=== PATIENT | male | born 1940 | race Two or more races ===

== ENCOUNTER 2023-09-01 09:14 | Outpatient (AMB) | payer OTHER, SELFPAY ==
--- NOTE | 2023-09-01 09:46 | MHC.OFFVIS ---
Vital Signs 09/01/23 10:01 Height 5 ft 5 in Weight 224 lb 8 oz BMI 37.4 BP 130/72 Blood Pressure Location Rt brachial Position Sitting Pulse 76 Pulse Source Pulse Oximeter Pulse Oximetry (%) 97 Oxygen Delivery Method Room Air Intake Visit Reasons: ENP-Ongoing Memory loss - LVM w/add Intake Note: Patient presents for ongoing memory loss. Feeling loss and very confuse. Feeling depressed. Club Room Attendant Required: Yes Club Room Attendant Name: Aliyah Ball Allergies lisinopril Allergy (Severe, Verified 09/01/23 09:54) Swelling Medication List - Last Reconciled 09/01/23 by Tiara Mcclellan MD amlodipine 2.5 mg PO DAILY aspirin (Adult Aspirin Regimen) 81 mg PO DAILY finasteride 5 mg PO DAILY metformin 1,000 mg PO BID metoprolol succinate ER 25 mg PO DAILY simvastatin 10 mg PO DAILY HPI Comments Details: 82y/o Right Handed [place] speaking male comes for evaluation of memory issues. A certified certified medical coder Aliyah Ball helped with this appointment.he is accompanied by his daughter who helps with history His family noticed some changes in his personality, cognition for past 6 months and is progressively worsening. He is quieter , has word finding difficulties, confused of where he is , forgets conversations, short term memory issues ,confused with medications, repeats himself often etc. He needs help with dressing showering due to arthritis .No sundowning. He has nocturia, has frequent arousals, has trouble sleeping, confusional arousals etc. He has depression not on any treatment. He lost 2 of his sisters and a grand son last year and has been depressed since then No h/o head injury [facility] Medical History Insomnia Hypersomnia Cognitive change Incisional hernia Neuropathy Anemia Arthritis Diabetes BPH (benign prostatic hyperplasia) PAD (peripheral artery disease) CAD (coronary artery disease) HTN (hypertension) Hyperlipidemia Surgical History History of cataract removal with insertion of prosthetic lens Total knee replacement status History of shoulder surgery History of hernia repair History of cholecystectomy Family History Father Prostate cancer Mother Vaginal cancer Sister Cancer Daughter Cancer Social History Household Members: Spouse Housing: Apartment Alcohol intake: former Patient Tobacco Use Status: Former Tobacco user Tobacco use type: Cigarette Physical Exam Vital Signs: Last Vital Signs Pulse 76 09/01/23 10:01 BP 130/72 09/01/23 10:01 Pulse Ox 97 09/01/23 10:01 Oxygen Delivery Method Room Air 09/01/23 10:01 BMI result Body Mass Index 37.4 Const General: cooperative, healthy appearing and comfortable Nutritional Appearance: obese Orientation/consciousness: patient oriented x3 Eyes Pupils: Equal, round and reactive pupils present Neuro General: patient oriented x3, tone normal, moves all extremities and no focal motor deficits Cranial nerves: Yes Equal, round and reactive pupils present, Yes Bilaterally intact EOM present, Yes Nystagmus not present, Yes Normal facial strength present, Yes Midline tongue present, Yes Symmetric palate elevation present and Yes Ability to bilaterally elevate shoulders present Cognition (Neuro): normal cognition Gait exam (Neuro): Antalgic gait present and Assistive device used Motor exam (neuro): 5/5 motor strength present throughout and Normal motor muscle tone present throughout Deep tendon reflexes (DTR's): Right triceps reflex intensity grade: 1+, Left triceps reflex intensity grade: 1+, Rt Biceps (C5, C6): 1+, Left biceps reflex intensity grade: 1+, Right brachioradialis reflex intensity grade: 1+, Left brachioradialis reflex intensity grade: 1+, Right patellar reflex intensity grade: 1+ and Left patellar reflex intensity grade: 1+ Coordination: [id number] test normal Orientation What is the (year) (season) (date) (day) (month)?: year, season, date, day and month Where are we (state) (county) (town or city) (hospital) (floor)?: state, county, town or city, hospital/clinic and floor Registration Name of 3 unrelated objects clearly and slowly, then ask patient to repeat all 3 of them. (1st repeat determines score. Make sure they can repeat all three): object 1, object 2 and object 3 Attention & Calculation (CHOOSE ONE) Spell WORLD backwards (DLROW): 5 letters Recall Ask patient to repeat the 3 items from question #3.: object 1 and object 2 Language Show patient a wristwatch & ask what it is. Repeat for pencil.: watch and pencil Ask the patient to repeat the phrase 'No ifs, ands, or buts' after you.: correct Print the sentence 'CLOSE YOUR EYES' on a piece. If patient actually closes eyes then score.: followed written direction Give patient a blank piece of paper & ask to write a sentence. Score if it contains a noun & verb.: sentence contains subject and verb Ask patient to copy figure of intersecting pentagons exactly. Score if all 10 angles & 2 intersects are included.: all 10 angles present & 2 are intersected Score Score: 26 Assessment & Plan Assessment & Plan (1) Cognitive change: Comment: ? relate dto poorly controlled mood ? sleep disorder Code(s): R41.89 - Other symptoms and signs involving cognitive functions and awareness Category: Medical (2) Hypersomnia: Code(s): G47.10 - Hypersomnia, unspecified Category: Medical (3) Insomnia: Code(s): G47.00 - Insomnia, unspecified Category: Medical Plan I will trial him on lexapro 5mg qd for mood MRI brain labs- B12 TSH ESR Home sleep test to r/o sleep apnea Orders: Orders RT home sleep study Today G47.00 - Insomnia, unspecified, G47.10 - Hypersomnia, unspecified, R41.89 - Other symptoms and signs involving cognitive functions and awareness MR head/brain wo con Today G47.00 - Insomnia, unspecified, G47.10 - Hypersomnia, unspecified, R41.89 - Other symptoms and signs involving cognitive functions and awareness TSH reflex Free T4 Today R41.89 - Other symptoms and signs involving cognitive functions and awareness Erythrocyte Sedimentation Rate Today R41.89 - Other symptoms and signs involving cognitive functions and awareness Vitamin D 25-OH (D2 and D3) Today R41.89 - Other symptoms and signs involving cognitive functions and awareness Vitamin B12 and Folate Today R41.89 - Other symptoms and signs involving cognitive functions and awareness Medications: New escitalopram oxalate (Lexapro) 5 mg PO DAILY 30 tabs 6RF Coding Level of Care Code New Pt Level 4 (03938) Diagnoses Cognitive change R41.89 Hypersomnia G47.10 Insomnia G47.00
[2023-09-01 10:01] VITALS: BP 130/72; PULSE 76; O2SAT 97; BMI 37.4
== END 2023-09-01 10:40 | disposition home or self-care (01) ==
PROVIDERS: PCP Internal Medicine; Visit Provider Psychiatry & Neurology Neurology
DX: R41.89 Other symptoms and signs involving cognitive functions and awareness (principal); G47.10 Hypersomnia, unspecified; G47.00 Insomnia, unspecified
CPT/HCPCS: 99204

== ENCOUNTER → 2023-09-01 09:14 | Outpatient (BNVA) | payer OTHER, SELFPAY | PROVIDERS: PCP Internal Medicine; Visit Provider Psychiatry & Neurology Neurology | DX: R41.89 Other symptoms and signs involving cognitive functions and awareness (principal); G47.10 Hypersomnia, unspecified; G47.00 Insomnia, unspecified | CPT/HCPCS: 99202 ==

== ENCOUNTER 2023-09-01 10:57 | Outpatient (REF) | payer OTHER, SELFPAY ==
[2023-09-01 18:46] LABS: TSH reflex Free T4 0.71 uIU/mL (0.32-4.0)
[2023-09-01 18:55] LABS: Erythrocyte Sedimentation Rate 19 MM/HR (0-15)
[2023-09-01 19:00] LABS: Folate 7.7 ng/mL (> or = 4.0); Vitamin B12 824 pg/mL (200-900)
[2023-09-05 16:49] LABS: Vitamin D 25-OH, D2 <4 ng/mL; Vitamin D 25-OH, D3 24 ng/mL; Vitamin D 25-OH, Total 24 ng/mL (30-100)
== END 2023-09-01 10:58 | disposition home or self-care (01) ==
LOC: HO.HKASLDS 10:57
PROVIDERS: Visit Provider Psychiatry & Neurology Neurology
DX: R41.89 Other symptoms and signs involving cognitive functions and awareness (principal)
CPT/HCPCS: 36415; 82306; 82607; 82746; 84443; 85652

== ENCOUNTER → 2023-11-10 09:31 | Outpatient (REF) | payer MEDICARE, SELFPAY | LOC: HO.SL 09:31 | PROVIDERS: PCP Internal Medicine; Visit Provider Psychiatry & Neurology Neurology | DX: G47.00 Insomnia, unspecified (principal); G47.10 Hypersomnia, unspecified; R41.89 Other symptoms and signs involving cognitive functions and awareness | CPT/HCPCS: 95806 ==

== ENCOUNTER → 2023-11-10 09:55 | Outpatient (BNV) | payer MEDICARE, SELFPAY | PROVIDERS: PCP Internal Medicine; Visit Provider Internal Medicine | DX: R06.83 Snoring (principal); G47.10 Hypersomnia, unspecified | CPT/HCPCS: 95806 ==

== ENCOUNTER → 2023-11-17 08:20 | Outpatient (BNV) | payer MEDICARE, SELFPAY | PROVIDERS: PCP Internal Medicine; Visit Provider Radiology Diagnostic Radiology | DX: R41.89 Other symptoms and signs involving cognitive functions and awareness (principal) | CPT/HCPCS: 70551 ==

== ENCOUNTER 2023-11-17 08:45 | Outpatient (REF) | payer MEDICARE, SELFPAY ==
--- NOTE | ~2023-11-17 | MR_ITS ---
EXAMINATION: MR BRAIN WITHOUT CONTRAST CLINICAL INFORMATION: Cognitive issues; confusion, forgetfulness, poor sleeping. 83-year-old male. COMPARISON: No priors. TECHNIQUE: MRI of the brain was obtained using routine sequences without contrast. Exam was performed on a Siemens 1.5 Emily magnet without gadolinium. FINDINGS: There is no diffusion restriction. There is no intracranial hemorrhage, acute infarction, mass effect, or edema. Sulci and cisterns are diffusely somewhat prominent, in keeping with age-related involutional changes. Lateral and third ventricles are dilated somewhat out of proportion to sulcal prominence, a finding which may represent central volume loss, or possibly communicating hydrocephalus. Aqueductal stenosis is also a possibility given lack of old studies to compare with. No abnormal hemosiderin deposition is identified. There is mineralization of the basal ganglial nuclei as well as the dentate nuclei, age-related. There are extensive punctate and confluent foci of white matter T2 hyperintensity in the periventricular, subcortical, and hemispheric deep white matter, consistent with moderate to advanced small vessel ischemic changes. 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 Midline structures appear normally formed. The pituitary gland appears normal. Posterior fossa structures appear normal. Cerebellar tonsils are appropriately located. Major flow voids are preserved within the skull base. The globes and orbital contents demonstrate no abnormalities. There are bilateral lens replacements. There is complete opacification of the right frontal sinus with inspissated central secretions, and partial opacification of the left frontal sinus, bilateral anterior ethmoid sinuses, and right posterior ethmoid sinus. There is moderate circumferential polypoid mucosal thickening throughout both maxillary sinuses, and the right sphenoid sinus. Findings are in keeping with chronic beltran sinus disease. Aerated delicia bullosa in the left middle turbinate. Nasal septum is essentially midline without spur. There is trace fluid in the right mastoid tip. The left mastoid and bilateral middle ear cavities are normally aerated. Extracranial soft tissues demonstrate no abnormalities. No suspicious bone marrow changes are evident. Atlantoaxial joint demonstrates moderate to advanced degenerative arthrosis, with remodeling of the dens. MR/MR head/brain wo con IMPRESSION: 1. No evidence of intracranial hemorrhage, acute infarction, mass effect, or edema. 2. Age-related global evolutional changes. Ventricles dilated somewhat out of proportion to sulcal prominence, a finding which may represent more advanced central atrophy, or a component of communicating hydrocephalus. 3. Moderate to extensive small vessel ischemic changes in the supratentorial region. Subtle foci also noted in the mid and posterior pancho. 4. There are several old tiny lacunar type infarcts in the bilateral basal ganglia and left thalamus. 5. 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 Electronically signed by: Bunny Mcneal MD 12/03/2023 03:14 PM EDT
== END 2023-11-17 08:46 | disposition home or self-care (01) ==
LOC: HO.MRI 08:45
PROVIDERS: PCP Internal Medicine; Visit Provider Psychiatry & Neurology Neurology
DX: R41.89 Other symptoms and signs involving cognitive functions and awareness (principal); G47.10 Hypersomnia, unspecified; G47.00 Insomnia, unspecified
CPT/HCPCS: 70551

== ENCOUNTER → 2024-03-23 20:30 | Outpatient (REF) | payer MEDICARE, SELFPAY | LOC: HO.SL 20:30 | PROVIDERS: PCP Internal Medicine; Visit Provider Psychiatry & Neurology Neurology | DX: G47.10 Hypersomnia, unspecified (principal); R41.89 Other symptoms and signs involving cognitive functions and awareness; G47.00 Insomnia, unspecified | CPT/HCPCS: 95810 ==

== ENCOUNTER → 2024-03-23 22:53 | Outpatient (BNV) | payer MEDICARE, SELFPAY | PROVIDERS: PCP Internal Medicine; Visit Provider Psychiatry & Neurology Neurology | DX: G47.33 Obstructive sleep apnea (adult) (pediatric) (principal) | CPT/HCPCS: 95810 ==

== ENCOUNTER 2024-06-05 11:08 | Outpatient (AMB) | payer MEDICARE, SELFPAY ==
--- NOTE | 2024-06-05 11:27 | A.OFFVIS_ITS ---
Vital Signs 06/05/24 11:28 Height 5 ft 5 in Pulse 73 Pulse Source Pulse Oximeter Pulse Oximetry (%) 97 Oxygen Delivery Method Room Air Intake Visit Reasons: Memory loss Intake Note: Patient presents for follow up MRI done 12/06 and sleep study done 03/23/24 Radio Commentator Required: Yes Radio Commentator Services: Radio Commentator Offered & Declined Radio Commentator Name: Daughter Melissa Suarez lisinopril Allergy (Severe, Verified 06/05/24 11:32) Swelling Medication List - Last Reconciled 06/05/24 by Tiara Mcclellan MD amlodipine 2.5 mg PO DAILY aspirin (Adult Aspirin Regimen) 81 mg PO DAILY cholecalciferol (vitamin D3) 25 mcg PO DAILY 30 days escitalopram oxalate 10 mg PO DAILY finasteride 5 mg PO DAILY gabapentin 100 mg PO DAILY metformin 1,000 mg PO BID metoprolol succinate ER 25 mg PO DAILY simvastatin 10 mg PO DAILY tamsulosin mg PO DAILY HPI Comments Details: 83y/o Right Handed [place] Citizen speaking male comes for f/u of memory issues. He took lexapro for 1 month but did not refill after. sleep study was c/w sleep apnea -still waiting for CPAP He had back surgery for cauda equina syndrome last month History from initial visit- His family noticed some changes in his personality, cognition for past 6 months and is progressively worsening. He is quieter , has word finding difficulties, confused of where he is , forgets conversations, short term memory issues ,confused with medications, repeats himself often etc. He needs help with dressing showering due to arthritis .No sundowning. He has nocturia, has frequent arousals, has trouble sleeping, confusional arousals etc. He has depression not on any treatment. He lost 2 of his sisters and a grand son last year and has been depressed since then No h/o head injury [facility] Medical History Obstructive sleep apnea Insomnia Hypersomnia Cognitive change Incisional hernia Neuropathy Anemia Arthritis Diabetes BPH (benign prostatic hyperplasia) PAD (peripheral artery disease) CAD (coronary artery disease) HTN (hypertension) Hyperlipidemia Surgical History History of cataract removal with insertion of prosthetic lens Total knee replacement status History of shoulder surgery History of hernia repair History of cholecystectomy Family History Father Prostate cancer Mother Vaginal cancer Sister Cancer Daughter Cancer Social History Household Members: Spouse Housing: Apartment Alcohol intake: former Patient Tobacco Use Status: Former Tobacco user Tobacco use type: Cigarette Physical Exam Vital Signs: Last Vital Signs Pulse 73 06/05/24 11:28 Pulse Ox 97 06/05/24 11:28 Oxygen Delivery Method Room Air 06/05/24 11:28 Const General: cooperative, healthy appearing and comfortable Nutritional Appearance: obese Orientation/consciousness: patient oriented x3 Eyes Pupils: Equal, round and reactive pupils present Neuro General: patient oriented x3, tone normal, moves all extremities and no focal motor deficits Cranial nerves: Yes Equal, round and reactive pupils present, Yes Bilaterally intact EOM present, Yes Nystagmus not present, Yes Normal facial strength present, Yes Midline tongue present, Yes Symmetric palate elevation present and Yes Ability to bilaterally elevate shoulders present Cognition (Neuro): normal cognition Gait exam (Neuro): Antalgic gait present and Assistive device used Motor exam (neuro): 5/5 motor strength present throughout and Normal motor muscle tone present throughout Coordination: [id number] test normal Assessment & Plan Assessment & Plan (1) Cognitive change: Comment: ? relate dto poorly controlled mood ? sleep disorder Code(s): R41.89 - Other symptoms and signs involving cognitive functions and awareness Category: Medical (2) Obstructive sleep apnea: Code(s): G47.33 - Obstructive sleep apnea (adult) (pediatric) Category: Medical Plan Restart lexapro 10mg qd for mood DHRUV - call [facility] about the status of CPAP Medications: Changed From escitalopram oxalate (Lexapro) 5 mg PO DAILY 30 tabs 6RF To escitalopram oxalate 10 mg PO DAILY 30 tabs 6RF Coding Level of Care Code Est Pt Level 4 (00751) Complex EM visit Add On G2211 Diagnoses Cognitive change R41.89 Obstructive sleep apnea G47.33
[2024-06-05 11:28] VITALS: PULSE 73; O2SAT 97
== END 2024-06-05 12:00 | disposition home or self-care (01) ==
LOC: HO.HSMS 11:09
PROVIDERS: PCP Internal Medicine; Visit Provider Psychiatry & Neurology Neurology
DX: R41.89 Other symptoms and signs involving cognitive functions and awareness (principal); G47.33 Obstructive sleep apnea (adult) (pediatric)
CPT/HCPCS: 99214; G2211

== ENCOUNTER → 2024-06-05 11:08 | Outpatient (BNVA) | payer MEDICARE, SELFPAY | PROVIDERS: PCP Internal Medicine; Visit Provider Psychiatry & Neurology Neurology | DX: G47.33 Obstructive sleep apnea (adult) (pediatric) (principal); R41.89 Other symptoms and signs involving cognitive functions and awareness | CPT/HCPCS: 99212 ==

== ENCOUNTER 2024-09-08 10:14 | Outpatient (AMB) | payer MEDICARE, SELFPAY ==
--- NOTE | 2024-09-08 10:25 | A.OFFVIS_ITS ---
Vital Signs 09/08/24 10:27 Height 5 ft 5 in BP 128/72 Blood Pressure Location Rt brachial Position Sitting Pulse 63 Pulse Source Pulse Oximeter Pulse Oximetry (%) 98 Oxygen Delivery Method Room Air Intake Visit Reasons: 3 mnts f/u Intake Note: Patient presents follow up cognitive/DHRUV medication. Still not set up with CPAP Savings Counselor Required: Yes Savings Counselor Services: Savings Counselor Present Savings Counselor Name: aliyah ball Information Interpreted: non-clinical & clinical Allergies lisinopril Allergy (Severe, Verified 09/08/24 10:27) Swelling HPI Comments Details: 83y/o right handed Citizen Of [place] speaking male comes for f/u of memory issues. Amlodipine discontinued due to SE per his it security consulting director. 05/2024 HST c/w sleep apnea - AHI is 16 and frequent limb movements and moderate snoring. He tears off his mask in his sleep, and is unaware of this behavior per daughter, but trying to improve compliance. He had back surgery for cauda equina syndrome last month July 2024, he has constipation and diarrhea- when he is very constipated can go 5 days without a BM. Incontinence - wears diapers at night and through the day as needed. He needs help with dressing showering due to arthritis , ADL . Mood is okay, no talking, no sun-downing, lexapro 10mg po may 2024 increased to 15mg po daily at am, used to be very social, now engages with his dog donna only. He has nocturia, has frequent arousals, has trouble sleeping, confusional arousals etc. He can sleep all night with medication. Denies falls. Diet is good eats ice cream and junk food at night time. History from initial visit- His family noticed some changes in his personality, cognition for past 6 months and is progressively worsening. He is quieter , has word finding difficulties, confused of where he is , forgets conversations, short term memory issues ,confused with medications, following directions, orientation, repeats himself often etc, depression. He lost 2 of his sisters and a grand son passed, last year and has been depressed since then, place orientation, recall, langauge. MMSE next time. [facility] Medical History Obstructive sleep apnea Insomnia Hypersomnia Cognitive change Incisional hernia Neuropathy Anemia Arthritis Diabetes BPH (benign prostatic hyperplasia) PAD (peripheral artery disease) CAD (coronary artery disease) HTN (hypertension) Hyperlipidemia Surgical History History of cataract removal with insertion of prosthetic lens Total knee replacement status History of shoulder surgery History of hernia repair History of cholecystectomy Family History Father Prostate cancer Mother Vaginal cancer Sister Cancer Daughter Cancer Social History Household Members: Spouse Housing: Apartment Alcohol intake: former Patient Tobacco Use Status: Former Tobacco user Tobacco use type: Cigarette Physical Exam Vital Signs: Last Vital Signs Pulse 63 09/08/24 10:27 BP 128/72 09/08/24 10:27 Pulse Ox 98 09/08/24 10:27 Oxygen Delivery Method Room Air 09/08/24 10:27 Const General: cooperative, healthy appearing and comfortable Nutritional Appearance: obese Orientation/consciousness: patient oriented x3 Eyes Pupils: Equal, round and reactive pupils present Neuro General: patient oriented x3, tone normal, moves all extremities and no focal mo tor deficits Cranial nerves: Yes Equal, round and reactive pupils present, Yes Bilaterally intact EOM present, Yes Nystagmus not present, Yes Normal facial strength present, Yes Midline tongue present, Yes Symmetric palate elevation present and Yes Ability to bilaterally elevate shoulders present Cognition (Neuro): normal cognition Gait exam (Neuro): Antalgic gait present and Assistive device used Motor exam (neuro): 5/5 motor strength present throughout and Normal motor muscle tone present throughout Coordination: [id number] test normal Psych Appearance: well kempt Speech and movement: Slowed speech present (Psych) and Other speech and movement exam findings present (Psych) Affect: Other affect and mood findings present (His face lights up if you ask him about DONNA the dog.) Attitude: cooperative Insight: Limited insight present (Psych) Judgement: Limited judgement present (Psych) Results Reviewed Results Reviewed: 1. No evidence of intracranial hemorrhage, acute infarction, mass effect, or edema. 2. Age-related global evolutional changes. Ventricles dilated somewhat out of proportion to sulcal prominence, a finding which may represent more advanced central atrophy, or a component of communicating hydrocephalus. 3. Moderate to extensive small vessel ischemic changes in the supratentorial region. Subtle foci also noted in the mid and posterior pancho. 4. There are several old tiny lacunar type infarcts in the bilateral basal ganglia and left thalamus. 5. 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 04/2024 PSG AHI 16 c/w severe dhruv with frequent limb movements, and moderate snoring. Assessment & Plan Assessment & Plan (1) Obstructive sleep apnea: Code(s): G47.33 - Obstructive sleep apnea (adult) (pediatric) Category: Medical (2) Cognitive change: Comment: ? relate dto poorly controlled mood ? sleep disorder? Metanex Code(s): R41.89 - Other symptoms and signs involving cognitive functions and awareness Category: Medical (3) Neuropathy: Code(s): G62.9 - Polyneuropathy, unspecified Category: Medical (4) Anemia: Comment: ? labs Code(s): D64.9 - Anemia, unspecified Category: Medical Qualifiers: Anemia type: iron deficiency Iron deficiency anemia type: other iron deficiency Qualified Code(s): D50.8 - Other iron deficiency anemias (5) Hypersomnia: Code(s): G47.10 - Hypersomnia, unspecified Category: Medical Plan DHRUV Continue CPAP therapy PSG is c/w severe DHRUV, AHI is 16/hr and frequent limb movements, with moderate snoring. Continue compliance and for more than >4 hours a night. Depressed mood Continue lexapro 10mg qd for mood and increase to 15mg for 6-12 weeks take at the same time daily, do not stop taking this medication. Cognitive Decline start Metanex 2capsules BID. MMSE next visit. Medications: New mecobal-levomefolat Ca-B6 phos 2-3-35 mg (Metanx FC) take two capsules daily, one in the morning and one in the evening by mouth for 90 days. 2 caps PO BID 360 caps 0RF cognitive decline 90 days MDD 2 capsules R41.89 - Other symptoms and signs involving cognitive functions and awareness Refilled cholecalciferol (vitamin D3) 25 mcg PO DAILY 30 caps 6RF 30 days E55.9 - Vitamin D deficiency, unspecified Patient Instructions: Sleep Hygiene provided: set a scheduled bedtime and wake time to help regulate the circadian rhythm and balance the release of pituitary hormones. Sleep in a dark room, temperatures below 68 degrees, and no devices n bed. Limit caffeinat ed products 6 hours prior to bed, and limit fluids 2-4 hours prior to bed. Gentle night yoga, diffusing essential oils, and playing soft music can be relaxing. Wash mask, hoses, change filters, and fill reservoir with water daily. Call [facility] for supplies as needed. F/u in 3 months. Coding Level of Care Code Est Pt Level 4 (26953) Diagnoses Obstructive sleep apnea G47.33 Cognitive change R41.89 Neuropathy G62.9 Other iron deficiency anemia D50.8 Anemia type: iron deficiency Iron deficiency anemia type: other iron deficiency Hypersomnia G47.10 Time Spent (min) 30 Comment Improving
[2024-09-08 10:27] VITALS: BP 128/72; PULSE 63; O2SAT 98
--- OUTSIDE RECORDS SUMMARY | 2024-09-08 10:56 | XMS_ITS ---
Author Name [facility] Organization Unknown Encounters Encounter Type Encounter Reason Primary Diagnosis Location Date Ambulatory [facility] 12/24/2023 Care Team Organization Name Specialty Phone Email Start Date End Da te [facility] [id number]
== END 2024-09-08 11:50 | disposition home or self-care (01) ==
LOC: HO.HSMS 10:14
PROVIDERS: PCP Internal Medicine; Visit Provider Physician Assistant Medical
DX: G47.33 Obstructive sleep apnea (adult) (pediatric) (principal); R41.89 Other symptoms and signs involving cognitive functions and awareness; G62.9 Polyneuropathy, unspecified; D50.8 Other iron deficiency anemias; G47.10 Hypersomnia, unspecified
CPT/HCPCS: 99214

== ENCOUNTER → 2024-09-08 10:14 | Outpatient (BNVA) | payer MEDICARE, SELFPAY | PROVIDERS: PCP Internal Medicine; Visit Provider Physician Assistant Medical | DX: G47.33 Obstructive sleep apnea (adult) (pediatric) (principal); G62.9 Polyneuropathy, unspecified; G47.10 Hypersomnia, unspecified; R41.89 Other symptoms and signs involving cognitive functions and awareness; D50.8 Other iron deficiency anemias | CPT/HCPCS: 99212 ==